=== PATIENT | male | born 1940 | race Caucasian/White ===

== ENCOUNTER 2018-08-06 17:30 | Observation (INO) | payer OTHER, MEDICARE ==
[~2018-08-06] VITALS: Ht 182.9 cm; Wt 65.8 kg
[2018-08-06] MEDS ORDERED: FAMOTIDINE 20 MG/2 ML VIAL IV STA (17:47)
[2018-08-06] MEDS ORDERED: ACETAMINOPHEN 325 MG TAB PO ONE (18:00)
[2018-08-06] MEDS ORDERED: NITROGLYCERIN 2% OINT 1 GM PKT TOP ONE (18:00)
[2018-08-06] MEDS ORDERED: ACETAMINOPHEN 325 MG TAB PO PRN (18:30)
[2018-08-06] MEDS ORDERED: HYDROMORPHONE 1MG/1ML INJ IV PRN ×2 (18:30)
[2018-08-06] MEDS ORDERED: CLONIDINE HCL 0.2 MG TAB PO PRN (18:30)
[2018-08-06] MEDS ORDERED: ZOLPIDEM TARTRATE 5 MG TAB PO PRN (18:30)
[2018-08-06] MEDS ORDERED: SODIUM CHLORIDE FLUSH 10 ML SYR INJ PRN (18:30)
[2018-08-06] MEDS ORDERED: DIPHENHYDRAMINE HCL 25 MG CAP PO PRN (18:30)
[2018-08-06] MEDS ORDERED: ONDANSETRON HCL INJ 2 MG/ML VIAL IV PRN (18:30)
[2018-08-06] MEDS ORDERED: NITROGLYCERIN 0.4 MG SUBL SL PRN (18:30)
[2018-08-06] MEDS ORDERED: DIPHENHYDRAMINE HCL INJ 50 MG/ML VIAL IV PRN (18:30)
[2018-08-06] MEDS ORDERED: HYDRALAZINE HCL 20 MG/ML VIAL IV PRN (18:30)
--- NOTE | 2018-08-06 18:35 | Diagnostic Imaging Report ---
EXAMINATION: CXR 2 VIEW - HOPD INDICATION: Chest pain. \[id number] \S\181 COMPARISON: None FINDINGS: PA and lateral views TUBES and LINES: None. LUNGS: Lungs are well inflated. There is no evidence of pneumonia or pulmonary edema. Bilateral lower lung field nodular densities are probably nipple shadows. PLEURA: No pleural effusion or pneumothorax. HEART AND MEDIASTINUM: The cardiomediastinal silhouette is unremarkable. Tortuous thoracic aorta. Median sternotomy wires. BONES AND SOFT TISSUES: No acute osseous lesion. Right humeral head anchor screws are seen. Left diaphragmatic eventration. UPPER ABDOMEN: No free air under the diaphragm. IMPRESSION: No acute thoracic abnormality. Signed by: Dr. Hesham Hobson MD on 08/06/2018 6:31 PM
[2018-08-06] MEDS: METOPROLOL TARTRATE 25 MG TAB PO SCH (19:04)
[2018-08-06] MEDS: ENOXAPARIN INJ 80 MG/0.8 ML SYR SC SCH (19:48)
[2018-08-06] MEDS: FAMOTIDINE 20 MG TAB PO SCH (19:48)
[2018-08-06] MEDS ORDERED: SIMVASTATIN 40 MG TAB PO SCH (21:00)
[2018-08-06 21:07] VITALS: BP 135/81
[2018-08-06 23:07] LABS: CREATINE KINASE 44 IU/L (30-200)
[2018-08-07 00:28] VITALS: BP 112/71
[2018-08-07] MEDS ORDERED: ASPIRIN325 MG PO (00:56)
[2018-08-07] MEDS ORDERED: RED YEAST RICE600 MG PO (00:56)
[2018-08-07] MEDS ORDERED: LANSOPRAZOLE30 MG PO (00:56)
[2018-08-07] MEDS ORDERED: TENORMIN50 MG PO (00:56)
[2018-08-07] MEDS ORDERED: NITROGLYCERIN0.4 MG SL (00:56)
[2018-08-07] MEDS ORDERED: MIRTAZAPINE15 MG PO (00:56)
[2018-08-07] MEDS ORDERED: PROBIOTIC & AC1 EACH PO (00:56)
[2018-08-07 01:21] VITALS: BP 112/71
[2018-08-07 05:44] VITALS: BP 117/66
[2018-08-07] MEDS: METOPROLOL TARTRATE 25 MG TAB PO SCH (06:00)
[2018-08-07] MEDS: ENOXAPARIN INJ 80 MG/0.8 ML SYR SC SCH (06:00)
[2018-08-07] MEDS: FAMOTIDINE 20 MG TAB PO SCH (06:00)
[2018-08-07 06:15] LABS: CHOL/HDL RATIO 2.8 (3.9-4.7)
[2018-08-07 06:27] LABS: CREATINE KINASE MB 1.8 ng/mL (0-5.0)
[2018-08-07 08:09] LABS: BASOPHILS % 0.6 % (0.0-1.0); EOSINOPHILS # (AUTO) 0.2 (0.0-0.4); EOSINOPHILS % 3.5 % (0.0-6.0); HEMATOCRIT 38.9 % (38.2-49.6); HEMOGLOBIN 12.8 g/dL (14.0-18.0); LYMPHOCYTES # (AUTO) 1.8 (1.0-3.2); LYMPHOCYTES % 35.3 % (18.0-39.1); MEAN CORPUSCULAR HEMOGLOBIN 30.3 pg (28-32); MEAN CORPUSCULAR HGB CONC 32.9 g/dL (31-35); MONOCYTES # (AUTO) 0.6 (0.2-0.8); MONOCYTES % 10.9 % (4.4-11.3); NEUTROPHILS # (AUTO) 2.5 (2.1-6.9); NEUTROPHILS % 49.5 % (38.7-80.0); PLATELET COUNT 223 x10e3/uL (140-360); RED BLOOD COUNT 4.23 x10e6/uL (4.3-5.7); RED CELL DISTRIBUTION WIDTH 13.3 % (11.7-14.4)
[2018-08-07 08:20] LABS: BLOOD UREA NITROGEN 10 mg/dL (7-26); BUN/CREATININE RATIO 16 (6-25); CARBON DIOXIDE 26 mmol/L (22-29); CHLORIDE 110 mmol/L (98-107); CREATININE, SERUM 0.63 mg/dL (0.72-1.25); EST GLOMERULAR FILTRATION RATE > 60 ML/MIN (60-); GLUCOSE 86 mg/dL (74-118); SODIUM 144 mmol/L (136-145)
--- NOTE | 2018-08-07 08:54 | Consultation ---
DATE OF CONSULTATION: August 06, 2018 CONSULTING PHYSICIAN: Dr. Soto REASON FOR CONSULTATION: Chest pain. HPI: This is a 77-year-old male that presented with chest pain. According to the patient, prior to arrival, he started having left substernal chest pain on a scale of 5 out of 10 with no radiation that he came into the emergency room for evaluation. He stated also he had this kind of pain off and on, recently saw the PCP and he was scheduled for a cardiac stress test in September. He follows up with [facility]. He has a history of open heart surgery 11 years ago and has not had a cardiac stress test for a long time now. He denies any palpitation, any shortness of breath, any diaphoresis, any headache or dizziness. Troponin x2 was negative. EKG showed normal sinus rhythm with some PVCs with no ST abnormalities. PAST MEDICAL HISTORY: TX, migraine, and CAD. SOCIAL HISTORY: He lives at home with the . No smoking, no drinking. FAMILY HISTORY: Noncontributory. SURGICAL HISTORY: Appendectomy and CABG. MEDICATIONS: See chart. ALLERGIES: HE IS ALLERGIC TO CODEINE AND SULFA. REVIEW OF THE SYSTEMS: Negative except those mentioned above, is positive for chest pain. PHYSICAL EXAMINATION: VITAL SIGNS: Temperature 97, heart rate 58, blood pressure 117/66, respiration 18, oxygen saturation 97% on room air. GENERAL: He is awake, alert, and oriented x3. HEENT: Mucous membranes moist. NECK: Supple. LUNGS: Bilaterally clear to auscultation. CARDIOVASCULAR: S1 and S2 present. ABDOMEN: Soft. NEUROLOGICAL: Intact. EXTREMITIES: With no edema. LABS: Magnesium 2.0. CK 36, CK-MB 1.8, troponin 0.01. There was no BMP or CBC done. IMPRESSION: 1. Chest pain. 2. Coronary artery disease with coronary artery bypass graft. 3. History of migraines. ASSESSMENT AND PLAN: Will go ahead and get serial cardiac enzymes. He is pending an echocardiogram. He stated that the chest pain is better and wants to be followed up as an outpatient at [facility] for stress test. Will go ahead and continue nitrate, statin, beta glo, and his home medications. Further cardiac workup pending clinical course. Thank you for this consultation. Dictated by: Jun Leonardo NP Job#: [id number]
[2018-08-07 08:58] VITALS: BP 103/69
[2018-08-07] MEDS ORDERED: ASPIRIN 325 MG TAB EC PO SCH (09:00)
[2018-08-07 12:31] VITALS: BP 99/63
[2018-08-07 13:48] LABS: CREATINE KINASE 46 IU/L (30-200)
--- NOTE | 2018-08-07 15:12 | Discharge Summary ---
PRIMARY CARE DOCTOR: Dr. Kong Loaiza with [facility]. FINAL DIAGNOSIS: Chest pain. SECONDARY DIAGNOSIS: Coronary artery disease. RECORD TESTER: Dr. Gomez, cardiology. PROCEDURE/STUDIES PERFORMED: Echocardiogram. HISTORY: Per H\T\P. HOSPITAL COURSE: Patient was admitted and monitored on telemetry. His troponins are negative x3. Therefore, he did not have an acute myocardial infarction. I have spoken to Dr. Gomez. 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 At this time, he will continue his aspirin and atenolol. He does not need a statin, given that his LDL is 49. CONDITION ON DISCHARGE: Stable. DISCHARGE MEDICATIONS: Please see medication reconciliation form. SELVIN CARRASCO M.D. Job#: [id number] [place] cc:KONG LOAIZA MD
== END 2018-08-07 16:03 | disposition hospice, home (50) ==
LOC: FSED 17:30 → INTOOBSV 18:28 → ERHOLD 18:28 → MED/SURG 20:55
PROVIDERS: ADMIT Internal Medicine; ATTEND Internal Medicine
DX: R07.9 Chest pain, unspecified (principal); I10 Essential (primary) hypertension; Z95.1 Presence of aortocoronary bypass graft; Z82.49 Family history of ischemic heart disease and other diseases of the circulatory system; Z88.5 Allergy status to narcotic agent; Z88.2 Allergy status to sulfonamides; I25.2 Old myocardial infarction; I25.10 Atherosclerotic heart disease of native coronary artery without angina pectoris; I08.1 Rheumatic disorders of both mitral and tricuspid valves
CPT/HCPCS: 36415 ×2; 71046; 80048; 80053; 80061; 82550 ×2; 82553 ×2; 83735; 84484 ×2; 85025 ×2; 85610; 93005; 93306; 99284; G0378 ×2; J1650

== ENCOUNTER 2021-06-12 10:07 | Inpatient (IN) | payer MEDICARE, OTHER ==
[~2021-06-12] VITALS: Ht 185.4 cm; Wt 65.8 kg
[~2021-06-12 10:07] MED LIST: ASPIRIN325 MG PO; LANSOPRAZOLE30 MG PO; MIRTAZAPINE15 MG PO; NITROGLYCERIN0.4 MG SL; PROBIOTIC & AC1 EACH PO; RED YEAST RICE600 MG PO; TENORMIN50 MG PO
[2021-06-12] MEDS ORDERED: ONDANSETRON HCL 4 MG ORAL DISINTEGRATING TAB PO ONE (10:30)
[2021-06-12 12:10] LABS: BASOPHILS # (AUTO) 0.1 (0.0-0.1); BASOPHILS % 0.7 % (0.0-1.0); EOSINOPHILS % 0.4 % (0.0-6.0); HEMOGLOBIN 12.9 g/dL (14.0-18.0); LYMPHOCYTES # (AUTO) 0.8 (1.0-3.2); LYMPHOCYTES % 10.9 % (18.0-39.1); MEAN CORPUSCULAR HEMOGLOBIN 31.2 pg (28-32); MEAN CORPUSCULAR HGB CONC 33.1 g/dL (31-35); MEAN CORPUSCULAR VOLUME 94.4 fL (81-99); MONOCYTES # (AUTO) 0.6 (0.2-0.8); MONOCYTES % 7.9 % (4.4-11.3); NEUTROPHILS # (AUTO) 5.7 (2.1-6.9); NEUTROPHILS % 79.4 % (38.7-80.0); PLATELET COUNT 240 x10e3/uL (140-360); RED BLOOD COUNT 4.13 x10e6/uL (4.3-5.7); RED CELL DISTRIBUTION WIDTH 13.5 % (11.7-14.4)
[2021-06-12 12:24] LABS: ALBUMIN 3.7 g/dL (3.5-5.0); ALBUMIN/GLOBULIN RATIO 1.5 (0.8-2.0); ANION GAP 15.3 mmol/L (8-16); CREATININE, SERUM 0.59 mg/dL (0.72-1.25); POTASSIUM 4.3 mmol/L (3.5-5.1)
[2021-06-12] MEDS ORDERED: FENTANYL CITRATE/PF 100MCG/2 ML INJ IV ONE (12:45)
[2021-06-12] MEDS ORDERED: FENTANYL CITRATE/PF 100MCG/2 ML INJ ONE (12:49)
[2021-06-12 14:48] LABS: INR 0.86; PARTIAL THROMBOPLASTIN TIME 28.2 seconds (23.8-35.5); PROTHROMBIN TIME 12.3 seconds (11.9-14.5)
[2021-06-12] MEDS ORDERED: ACETAMINOPHEN 325 MG TAB PO PRN (15:45)
[2021-06-12] MEDS ORDERED: ONDANSETRON HCL INJ 2MG/ML 2ML 2 MG/ML VIAL IV PRN (15:45)
[2021-06-12] MEDS ORDERED: HYDRALAZINE HCL 20 MG/ML VIAL IV PRN (15:45)
[2021-06-12] MEDS ORDERED: CREON DR 12,001 EACH PO (19:39)
[2021-06-12] MEDS ORDERED: TAMSULOSIN PO (19:39)
[2021-06-12 20:00] VITALS: BP 122/77
[2021-06-12 20:05] VITALS: BP 122/77
[2021-06-12] MEDS: MIRTAZAPINE 15 MG TAB PO SCH ×2 (21:00→23:35)
[2021-06-13] VITALS (8 sets, daily range): BP systolic 99–121; BP diastolic 70–81
[2021-06-13] MEDS: MORPHINE SULFATE INJ 2 MG/ML SYR IV PRN ×3 (00:45→17:11)
[2021-06-13 05:55] LABS: BASOPHILS # (AUTO) 0.1 (0.0-0.1); BASOPHILS % 0.8 % (0.0-1.0); EOSINOPHILS # (AUTO) 0.2 (0.0-0.4); EOSINOPHILS % 2.9 % (0.0-6.0); HEMATOCRIT 38.6 % (38.2-49.6); HEMOGLOBIN 12.8 g/dL (14.0-18.0); LYMPHOCYTES % 14.7 % (18.0-39.1); MEAN CORPUSCULAR HEMOGLOBIN 31.2 pg (28-32); MEAN CORPUSCULAR HGB CONC 33.2 g/dL (31-35); MEAN CORPUSCULAR VOLUME 94.1 fL (81-99); MONOCYTES # (AUTO) 0.7 (0.2-0.8); MONOCYTES % 11.3 % (4.4-11.3); NEUTROPHILS # (AUTO) 4.6 (2.1-6.9); NEUTROPHILS % 69.8 % (38.7-80.0); PLATELET COUNT 244 x10e3/uL (140-360); RED CELL DISTRIBUTION WIDTH 13.3 % (11.7-14.4)
[2021-06-13 06:08] LABS: INR 0.95; PROTHROMBIN TIME 13.3 seconds (11.9-14.5)
[2021-06-13 06:14] LABS: ALBUMIN 3.2 g/dL (3.5-5.0); ALBUMIN/GLOBULIN RATIO 1.3 (0.8-2.0); ANION GAP 9.8 mmol/L (8-16); CALCIUM 8.8 mg/dL (8.4-10.2); CHOL/HDL RATIO 1.8 (3.9-4.7); CREATININE, SERUM 0.62 mg/dL (0.72-1.25); POTASSIUM 3.8 mmol/L (3.5-5.1)
[2021-06-13 06:36] LABS: THYROID STIMULATING HORMONE 0.83 uIU/mL (0.350-4.940)
[2021-06-13] MEDS: PANTOPRAZOLE SOD 40 MG TABEC PO SCH (07:30)
[2021-06-13] MEDS ORDERED: NON-FORMULARY MEDICATION (Lansoprazole 30 MG) PO SCH (09:00)
[2021-06-13] MEDS ORDERED: SODIUM CHLORIDE 0.9% 1000ML 1,000 ML ONE (10:31)
[2021-06-13] MEDS: SODIUM CHLORIDE 0.9% 1000ML 1,000 ML IV SCH (10:51)
[2021-06-13] MEDS ORDERED: ONDANSETRON HCL INJ 2MG/ML 2ML 2 MG/ML VIAL ONE (11:52)
[2021-06-13] MEDS ORDERED: PROPOFOL IV EMULSION 10 MG/ML 20 ML VIAL ONE (11:52)
[2021-06-13] MEDS ORDERED: LIDOCAINE HCL 2% LOCAL INJ 5 ML SDV VIAL INJ ONE (11:52)
[2021-06-13] MEDS ORDERED: POVIDONE IODINE 0.05% 0.05 % ML PO ONE (11:52)
[2021-06-13] MEDS ORDERED: ROCURONIUM BROMIDE 10 MG/ML 5ML VIAL IV ONE (11:52)
[2021-06-13] MEDS ORDERED: SEVOFLURANE INHAL SOLN 250 ML PEN BTL ONE (11:52)
[2021-06-13] MEDS ORDERED: DEXAMETHASONE SOD PHOS INJ 4 MG/ML VIAL ONE (11:52)
[2021-06-13] MEDS ORDERED: FENTANYL CITRATE/PF 100MCG/2 ML INJ ONE (12:11)
[2021-06-13] MEDS ORDERED: BUPIVACAINE HCL 0.5% INJ 30 ML VIAL INJ ONE (13:41)
[2021-06-13] MEDS ORDERED: ACETAMINOPHEN/CODEINE 300MG - 30MG TAB PO PRN (17:00)
[2021-06-13] MEDS: MIRTAZAPINE 15 MG TAB PO SCH (21:00)
[2021-06-13] MEDS: Cefazolin 1 GM in SODIUM CHLORIDE 0.9% 50ML 50 ML IV SCH (22:19)
[2021-06-14] VITALS (8 sets, daily range): BP systolic 94–125; BP diastolic 59–79
[2021-06-14] MEDS: KETOROLAC TROMETHAMINE 30 MG/ML VIAL IV PRN ×3 (03:07→23:05)
[2021-06-14] MEDS: SODIUM CHLORIDE 0.9% 1000ML 1,000 ML IV SCH (03:27)
[2021-06-14 05:34] LABS: BASOPHILS % 0.4 % (0.0-1.0); EOSINOPHILS # (AUTO) 0.2 (0.0-0.4); EOSINOPHILS % 2.1 % (0.0-6.0); HEMATOCRIT 36.7 % (38.2-49.6); HEMOGLOBIN 11.9 g/dL (14.0-18.0); LYMPHOCYTES # (AUTO) 1.3 (1.0-3.2); LYMPHOCYTES % 12.7 % (18.0-39.1); MEAN CORPUSCULAR HGB CONC 32.4 g/dL (31-35); MEAN CORPUSCULAR VOLUME 95.6 fL (81-99); MONOCYTES # (AUTO) 1.2 (0.2-0.8); MONOCYTES % 11.1 % (4.4-11.3); NEUTROPHILS # (AUTO) 7.6 (2.1-6.9); NEUTROPHILS % 73.3 % (38.7-80.0); PLATELET COUNT 238 x10e3/uL (140-360); RED BLOOD COUNT 3.84 x10e6/uL (4.3-5.7); RED CELL DISTRIBUTION WIDTH 13.9 % (11.7-14.4)
[2021-06-14 05:56] LABS: ANION GAP 9.8 mmol/L (8-16); CALCIUM 8.5 mg/dL (8.4-10.2); CREATININE, SERUM 0.56 mg/dL (0.72-1.25); POTASSIUM 3.8 mmol/L (3.5-5.1)
[2021-06-14] MEDS: Cefazolin 1 GM in SODIUM CHLORIDE 0.9% 50ML 50 ML IV SCH ×3 (06:12→22:56)
[2021-06-14] MEDS: PANTOPRAZOLE SOD 40 MG TABEC PO SCH (08:25)
[2021-06-14] MEDS ORDERED: ENOXAPARIN SOD INJ 40 MG/0.4 ML SYR SC SCH ×2 (09:00→17:00)
[2021-06-14] MEDS ORDERED: TRAMADOL HCL 50 MG TAB PO PRN (11:30)
[2021-06-14] MEDS: MIRTAZAPINE 15 MG TAB PO SCH (19:43)
[2021-06-15 00:50] VITALS: BP 110/72
[2021-06-15 04:00] VITALS: BP 120/77
[2021-06-15] MEDS: Cefazolin 1 GM in SODIUM CHLORIDE 0.9% 50ML 50 ML IV SCH (05:35)
[2021-06-15 05:39] LABS: HEMATOCRIT 36.1 % (38.2-49.6); HEMOGLOBIN 11.8 g/dL (14.0-18.0)
[2021-06-15] MEDS: KETOROLAC TROMETHAMINE 30 MG/ML VIAL IV PRN (05:49)
[2021-06-15 07:47] VITALS: BP 120/68
[2021-06-15 08:03] VITALS: BP 120/68
[2021-06-15] MEDS: PANTOPRAZOLE SOD 40 MG TABEC PO SCH (08:56)
[2021-06-15] MEDS ORDERED: ASPIRIN 81 MG ENTERIC COATED PO SCH (09:00)
[2021-06-15 11:57] VITALS: BP 95/69
== END 2021-06-15 13:38 | DRG 481 ==
LOC: ER 10:35 → ERHOLD 12:26 → MED/SURG 19:45
PROVIDERS: ADMIT Internal Medicine; ATTEND Internal Medicine
PROC: 0QS636Z Reposition Right Upper Femur with Intramedullary Internal Fixation Device, Percutaneous Approach (ICD-10-PCS; principal; 2021-06-13 12:00)
DX: S72.001A Fracture of unspecified part of neck of right femur, initial encounter for closed fracture (principal); E87.1 Hypo-osmolality and hyponatremia; I10 Essential (primary) hypertension; I25.10 Atherosclerotic heart disease of native coronary artery without angina pectoris; G43.909 Migraine, unspecified, not intractable, without status migrainosus; W10.9XXA Fall (on) (from) unspecified stairs and steps, initial encounter; S00.83XA Contusion of other part of head, initial encounter; Z95.1 Presence of aortocoronary bypass graft; E78.5 Hyperlipidemia, unspecified; Z20.822 Contact with and (suspected) exposure to COVID-19
CPT/HCPCS: 36415; 70450; 71045; 72125; 72170; 76000; 80048; 80053; 80061; 84443; 85014; 85018; 85025; 85610; 85730; 86850; 86900; 93005; 93306; 97139; 99284; C1713; C1769; J0690; J1100; J1650; J1885; J2001; J2270; J2405; J3010; J7030; Q0162; U0002